=== PATIENT | male | born 2000 ===

== ENCOUNTER 2019-04-11 10:53 | Observation (INO) ==
[2019-04-11] MEDS ORDERED: LORazepam 2 MG/ML VIAL IV ONE (10:59)
[2019-04-11] MEDS ORDERED: 0.9 % SODIUM CHLORIDE 1,000 ML IV ONE ×4 (11:09→21:49)
[2019-04-11] MEDS ORDERED: ACETAMINOPHEN 1,000 MG/100 ML BOTTLE IV ONE (11:09)
[2019-04-11] MEDS ORDERED: OLANZapine 10 MG VIAL IM SCH (11:15)
[2019-04-11 11:34] LABS: Basophils # (Auto) 0 K/mcL (0.0-0.3); Basophils % (Auto) 0.3 % (0.0-2.0); Eosinophils # (Auto) 0 K/mcL (0.0-0.7); Eosinophils % (Auto) 0.8 % (0.0-7.0); Granulocytes % (Auto) 54.4 % (38.0-78.0); Hemoglobin 14.2 g/dL (13.5-16.5); Lymphocytes # (Auto) 1.8 K/mcL (1.5-4.8); Lymphocytes % (Auto) 34.3 % (15.5-49.0); Mean Cell Volume 93.7 fL (80.0-100.0); Mean Corpuscular HGB Conc 33.7 g/dL (31.0-36.0); Mean Platelet Volume 7.7 fL (7.4-10.4); Monocytes # (Auto) 0.5 K/mcL (0.1-0.9); Monocytes % (Auto) 10.2 % (1.0-12.0); Platelet Count 276 K/mcL (140-440); RBC 4.48 M/mcL (4.50-5.90); Red Cell Distribution Width 12.4 % (11.5-14.5); WBC 5.4 K/mcL (4.5-11.0)
--- NOTE | 2019-04-11 11:49 | Cat Scan Report ---
CLINICAL INFORMATION: Altered mental status COMPARISON: None. TECHNIQUE: Axial noncontrast-enhanced images through the brain. Sagittally and coronally reformatted images. FINDINGS: No acute intracranial hemorrhage. No subdural hematoma. There is no subarachnoid hemorrhage. No intra-axial hematoma. No focal intra-axial attenuation abnormality. No localized mass effect. No midline shift. Brain volume is normal. There is no hydrocephalus. Brainstem and cerebellum are negative No calvarial lesions. Temporal bones are negative. Visualized portions of the paranasal sinuses are negative. IMPRESSION: Negative noncontrast enhanced brain CT scan The exam was performed using radiation dose optimization techniques including, but not limited to, automated exposure control, adjustment of the mA and/or kV according to patient size and use of iterative reconstruction technique. Interpreted and Authenticated by: Vargas García 04/11/19
[2019-04-11 11:51] LABS: Alcohol, Blood < 10.0 mg/dL (<10); Alcohol,Blood < 0.010 gm/dl (<0.010)
[2019-04-11 11:52] LABS: POC Blood Urea Nitrogen 10 mg/dl (6-20); POC CO2 23 mmol/L (22-30); POC Chloride 102 mmol/L (96-108); POC Creatinine 0.9 mg/dl (0.7-1.2); POC Glucose, Random 91 mg/dL (70-105); POC Potassium 3.3 mmol/L (3.3-5.1); POC Sodium 138 mmol/L (133-145)
[2019-04-11 11:57] LABS: Creatine Kinase 300 IU/L (24-195)
[2019-04-11 12:07] LABS: ALT/SGPT 13 U/l (0-40); AST/SGOT 23 U/l (0-37); Albumin 4.8 gm/dL (3.2-5.2); Alkaline Phosphatase 69 U/L (39-117); Bilirubin,Total 0.7 mg/dL (0.0-1.0); Blood Urea Nitrogen 11 mg/dl (6-20); Calcium 8.8 mg/dl (8.6-10.4); Carbon Dioxide 17 mmol/L (22-30); Chloride 98 mmol/L (96-108); Globulin 2.4 gm/dL (2.2-3.7); Glomerular Filtration Rate 95; Glucose 176 mg/dL (70-105)
[2019-04-11 12:08] LABS: Acetaminophen < 5.0 ug/mL; Salicylate < 0.3 mg/dL
[2019-04-11 12:26] LABS: Amphetamine Screen,Urine SUSPECT POSITIVE (NONDETECTED); Barbiturate Screen,Urine NONE DETECTED (NONDETECTED); Benzodiazepines Screen,Urine NONE DETECTED (NONDETECTED); Cannabinoid Screen,Urine SUSPECT POSITIVE (NONDETECTED); Cocaine Screen,Urine NONE DETECTED (NONDETECTED); Opiate Screen,Urine NONE DETECTED (NONDETECTED); Oxycodone, Urine Screen NONE DETECTED (NONDETECTED); Phencyclidine Screen,Urine NONE DETECTED (NONDETECTED)
[2019-04-11 12:27] LABS: Appearance,Urine CLEAR; Bacteria,Urine 0 /hpf (0); Bilirubin,Urine NEG (NEG); Color,Urine AMBER; Culture Indicated,Urine NO; Glucose,Urine (UA) NEGATIVE (NEG); Ketones,Urine 5/TR mg/dL (NEG); Leukocyte Esterase,Urine NEG /uL (NEG); Mucus,Urine MANY /hpf (0); Nitrate,Urine NEG (NEG); Protein,Urine 30 mg/dL (NEG); Sperm,Urine PRESENT /hpf (ABSENT); Urine Blood NEG mg/dL (<0.03); Urine Hyaline Cast 9 /lpf (0-2); Urine RBC 2 /hpf (0-1); Urine Squamous Epithelial Cell 0 /hpf (0-4); Urine WBC 1 /hpf (0-4)
[2019-04-11] MEDS ORDERED: LACTATED RINGERS 1,000 ML IV ONE (13:19)
--- NOTE | 2019-04-11 13:51 | Emergency Department Note ---
Altered Mental Status HPI - General Chief Complaint: Altered Mental Status Stated Complaint: meth use, delerium, Time Seen by Provider: 04/11/19 11:08 Source: EMS Mode of arrival: EMS Limitations: no limitations - History of Present Illness HPI Narrative: 19-year-old male presents with altered LOC. Was brought in by medics and multiple police officers. He apparently told them that he had used some methamphetamine and marijuana and did have a small amount left on him. Told him that he had just used a punch. He denied any other drug use or alcohol use. Apparently multiple people had called 911 after he was acting erratically, having convulsions and rolling around in the middle the street. He was flailing everywhere and so [id number] that medics had to give him 400 of ketamine in the field to even be able to care for him. They state prior to this he would answer a couple of questions but was obviously confused, combative, and flailing all over. He did tell them that he recently had a right clavicle fracture but denied any other health problems. When he arrives he is unable to answer any questions, he is sleeping and has a little bit of response to painful stimuli but otherwise is non-responsive. He is breathing and able to control his airway. He is covered in dirt and very unkept and odorous. MD complaint: altered mental status, decreased responsiveness - Related Data Home Medications Medication Instructions Recorded Confirmed No Known Home Meds 04/11/19 04/11/19 Allergies Allergy/AdvReac Type Severity Reaction Status Date / Time Unable to Assess Allergy Verified 04/11/19 13:31 Review of Systems Limitations: ROS unobtainable due to patients medical condition Past Medical History - Past Medical History Medical history: Reports: no medical history Psychiatric history: Denies: anxiety, depression, bipolar, PTSD, schizophrenia, previous psychiatric hospitalization Surgical history ED: Reports: no surgical history - Social History smoking status: Unknown if ever smoked Alcohol use: Reports: Unknown Drug use: Reports: marijuana, methamphetamine, IVDU Physical Exam Limitations: no limitations General appearance: other (Only slightly responsive to painful stimuli. Right pupil is sluggish compared to the left. He does have some ecchymosis below the left eye that appears old. He is not alert to person, place, or time and is completely unable to answer questions or follow commands of any kind.) Head: atraumatic, normocephalic, normal inspection Eye: Present: other (Some mild ecchymosis that is in healing stages to the left eye). Absent: PERRL (Right pupil is sluggish, 3 mm bilaterally on arrival), conjunctival injection, periorbital swelling, periorbital tenderness ENT: Present: mucous membranes moist, TM's normal bilaterally, normal external ear exam Neck: Present: normal inspection, trachea midline Chest: Present: symmetric chest wall rise, tenderness (Does seem to have a little bit of response to painful palpation to the right clavicle area with some mild ecchymosis that is yellow and healing present.) Respiratory: Present: normal lung sounds bilaterally. Absent: respiratory distress, rales/crackles, accessory muscle use Cardiovascular: Present: tachycardia (Tachycardic in the 110s on arrival) Abdominal: Present: soft, normal bowel sounds. Absent: distention, tenderness, guarding Extremities: Present: normal inspection Neurological: Absent: alert, oriented X3 Coma Scale Eye Opening: To Pain Coma Scale Motor Response: Withdraws to Pain Coma Scale Verbal Response: Inappropriate Coma Scale Total: 9 Psychiatric: Present: normal affect, normal mood Skin: Present: warm, dry, intact, normal color Course Course Narrative: At 1400 I did speak with the hospitalist, Dr. Jones who agrees to accept this patient and will be down to see him. Patient continues to be sedated for the most part. He does wake up and yell at times but does not make comprehensible sounds. Does not follow commands. Will not answer questions. Most of the time he is calm and sleeping Vital Signs Temperature 100.0 F H 04/11/19 11:15 Temperature 96.3 F L 04/11/19 19:16 Pulse Rate 78 04/11/19 19:33 Respiratory Rate 14 04/11/19 19:33 Blood Pressure 118/76 04/11/19 19:16 Pulse Oximetry (%) 97 04/11/19 19:33 Altered Mental Status - Lab Data Lab results reviewed: Yes I reviewed the patient's lab results. Result diagrams: 04/11/19 11:10 04/11/19 11:10 Lab Results 04/11/19 04/11/19 04/11/19 Range/Units 11:10 11:10 11:10 WBC 5.4 (4.5-11.0) K/mcL RBC 4.48 L (4.50-5.90) M/mcL Hgb 14.2 (13.5-16.5) g/dL Hct 42.0 (41.0-55.0) % POC Hct (41.0-55.0) % MCV 93.7 (80.0-100.0) fL MCH 31.6 (26.0-34.0) pg MCHC 33.7 (31.0-36.0) g/dL RDW 12.4 (11.5-14.5) % Plt Count 276 (140-440) K/mcL MPV 7.7 (7.4-10.4) fL Gran % 54.4 (38.0-78.0) % Lymph % (Auto) 34.3 (15.5-49.0) % [place] % (Auto) 10.2 (1.0-12.0) % Eos % (Auto) 0.8 (0.0-7.0) % Baso % (Auto) 0.3 (0.0-2.0) % Gran # 2.9 (1.8-8.0) K/mcL Lymph # (Auto) 1.8 (1.5-4.8) K/mcL [place] # (Auto) 0.5 (0.1-0.9) K/mcL Eos # (Auto) 0 (0.0-0.7) K/mcL Baso # (Auto) 0 (0.0-0.3) K/mcL VBG Lactic Acid (0.5-2.0) mmol/L POC Sodium (133-145) mmol/L Sodium 137 (133-145) mmol/L POC Potassium (3.3-5.1) mmol/L Potassium 3.4 (3.3-5.1) mmol/L POC Chloride (96-108) mmol/L Chloride 98 (96-108) mmol/L Carbon Dioxide 17 L (22-30) mmol/L POC Total CO2 (22-30) mmol/L Anion Gap 22.0 H (8-16) POC BUN (6-20) mg/dl BUN 11 (6-20) mg/dl Creatinine 1.1 (0.7-1.2) mg/dl POC Creatinine (0.7-1.2) mg/dl GFR Calculation 95 Glucose 176 H (70-105) mg/dL POC Glucose (70-105) mg/dL Calcium 8.8 (8.6-10.4) mg/dl POC WB Ioniz Calcium (1.16-1.32) mmol/L Total Bilirubin 0.7 (0.0-1.0) mg/dL AST 23 (0-37) U/l ALT 13 (0-40) U/l Alkaline Phosphatase 69 (39-117) U/L Total Creatine Kinase (24-195) IU/L C-Reactive Protein (0.0-0.8) mg/dl Total Protein 7.2 (5.9-8.4) gm/dL Albumin 4.8 (3.2-5.2) gm/dL Globulin 2.4 (2.2-3.7) gm/dL Albumin/Globulin Ratio 2.0 (1.0-2.3) Urine Color Urine Appearance Urine pH (5.0-9.0) Ur Specific Leonard (1.000-1.035) Urine Protein (NEG) mg/dL Urine Glucose (UA) (NEG) mg/dL Urine Ketones (NEG) mg/dL Urine Occult Blood (<0.03) mg/dL Urine Nitrate (NEG) Urine Bilirubin (NEG) mg/dL Urine Urobilinogen (NEG) mg/dL Ur Leukocyte Esterase (NEG) /uL Urine RBC (0-1) /hpf Urine WBC (0-4) /hpf Ur Squamous Epith Cells (0-4) /hpf Urine Bacteria (0) /hpf Hyaline Casts (0-2) /lpf Urine Mucus (0) /hpf Urine Sperm (ABSENT) /hpf Ur Culture Indicated? Salicylates < 0.3 mg/dL Urine Opiates Screen (NONDETECTED) Ur Opiates Confirm Ur Oxycodone Screen (NONDETECTED) Urine Methadone Screen (NONDETECTED) Ur Methadone Confirm Acetaminophen < 5.0 ug/mL Ur Barbiturates Screen (NONDETECTED) Ur Barbiturate Confirm Ur Phencyclidine Scrn (NONDETECTED) Urine PCP Confirm Ur Amphetamines Screen (NONDETECTED) U Amphetamines Confirm U Benzodiazepines Scrn (NONDETECTED) U Benzodiazepine Confm Urine Cocaine Screen (NONDETECTED) Urine Cocaine Confirm U Cannabinoids Confirm U Marijuana (THC) Screen (NONDETECTED) Ethyl Alcohol (<0.010) gm/dl 12/11/19 12/11/19 12/11/19 Range/Units 11:10 11:15 11:15 WBC (4.5-11.0) K/mcL RBC (4.50-5.90) M/mcL Hgb (13.5-16.5) g/dL Hct (41.0-55.0) % POC Hct (41.0-55.0) % MCV (80.0-100.0) fL MCH (26.0-34.0) pg MCHC (31.0-36.0) g/dL RDW (11.5-14.5) % Plt Count (140-440) K/mcL MPV (7.4-10.4) fL Gran % (38.0-78.0) % Lymph % (Auto) (15.5-49.0) % [place] % (Auto) (1.0-12.0) % Eos % (Auto) (0.0-7.0) % Baso % (Auto) (0.0-2.0) % Gran # (1.8-8.0) K/mcL Lymph # (Auto) (1.5-4.8) K/mcL [place] # (Auto) (0.1-0.9) K/mcL Eos # (Auto) (0.0-0.7) K/mcL Baso # (Auto) (0.0-0.3) K/mcL VBG Lactic Acid 9.4 H* (0.5-2.0) mmol/L POC Sodium (133-145) mmol/L Sodium (133-145) mmol/L POC Potassium (3.3-5.1) mmol/L Potassium (3.3-5.1) mmol/L POC Chloride (96-108) mmol/L Chloride (96-108) mmol/L Carbon Dioxide (22-30) mmol/L POC Total CO2 (22-30) mmol/L Anion Gap (8-16) POC BUN (6-20) mg/dl BUN (6-20) mg/dl Creatinine (0.7-1.2) mg/dl POC Creatinine (0.7-1.2) mg/dl GFR Calculation Glucose (70-105) mg/dL POC Glucose (70-105) mg/dL Calcium (8.6-10.4) mg/dl POC WB Ioniz Calcium (1.16-1.32) mmol/L Total Bilirubin (0.0-1.0) mg/dL AST (0-37) U/l ALT (0-40) U/l Alkaline Phosphatase (39-117) U/L Total Creatine Kinase (24-195) IU/L C-Reactive Protein < 0.3 (0.0-0.8) mg/dl Total Protein (5.9-8.4) gm/dL Albumin (3.2-5.2) gm/dL Globulin (2.2-3.7) gm/dL Albumin/Globulin Ratio (1.0-2.3) Urine Color Urine Appearance Urine pH (5.0-9.0) Ur Specific Leonard (1.000-1.035) Urine Protein (NEG) mg/dL Urine Glucose (UA) (NEG) mg/dL Urine Ketones (NEG) mg/dL Urine Occult Blood (<0.03) mg/dL Urine Nitrate (NEG) Urine Bilirubin (NEG) mg/dL Urine Urobilinogen (NEG) mg/dL Ur Leukocyte Esterase (NEG) /uL Urine RBC (0-1) /hpf Urine WBC (0-4) /hpf Ur Squamous Epith Cells (0-4) /hpf Urine Bacteria (0) /hpf Hyaline Casts (0-2) /lpf Urine Mucus (0) /hpf Urine Sperm (ABSENT) /hpf Ur Culture Indicated? Salicylates mg/dL Urine Opiates Screen (NONDETECTED) Ur Opiates Confirm Ur Oxycodone Screen (NONDETECTED) Urine Methadone Screen (NONDETECTED) Ur Methadone Confirm Acetaminophen ug/mL Ur Barbiturates Screen (NONDETECTED) Ur Barbiturate Confirm Ur Phencyclidine Scrn (NONDETECTED) Urine PCP Confirm Ur Amphetamines Screen (NONDETECTED) U Amphetamines Confirm U Benzodiazepines Scrn (NONDETECTED) U Benzodiazepine Confm Urine Cocaine Screen (NONDETECTED) Urine Cocaine Confirm U Cannabinoids Confirm U Marijuana (THC) Screen (NONDETECTED) Ethyl Alcohol < 0.010 (<0.010) gm/dl 04/11/19 04/11/19 04/11/19 Range/Units 11:15 11:29 11:34 WBC (4.5-11.0) K/mcL RBC (4.50-5.90) M/mcL Hgb (13.5-16.5) g/dL Hct (41.0-55.0) % POC Hct 35.0 L (41.0-55.0) % MCV (80.0-100.0) fL MCH (26.0-34.0) pg MCHC (31.0-36.0) g/dL RDW (11.5-14.5) % Plt Count (140-440) K/mcL MPV (7.4-10.4) fL Gran % (38.0-78.0) % Lymph % (Auto) (15.5-49.0) % [place] % (Auto) (1.0-12.0) % Eos % (Auto) (0.0-7.0) % Baso % (Auto) (0.0-2.0) % Gran # (1.8-8.0) K/mcL Lymph # (Auto) (1.5-4.8) K/mcL [place] # (Auto) (0.1-0.9) K/mcL Eos # (Auto) (0.0-0.7) K/mcL Baso # (Auto) (0.0-0.3) K/mcL VBG Lactic Acid (0.5-2.0) mmol/L POC Sodium 138 (133-145) mmol/L Sodium (133-145) mmol/L POC Potassium 3.3 (3.3-5.1) mmol/L Potassium (3.3-5.1) mmol/L POC Chloride 102 (96-108) mmol/L Chloride (96-108) mmol/L Carbon Dioxide (22-30) mmol/L POC Total CO2 23 (22-30) mmol/L Anion Gap (8-16) POC BUN 10 (6-20) mg/dl BUN (6-20) mg/dl Creatinine (0.7-1.2) mg/dl POC Creatinine 0.9 (0.7-1.2) mg/dl GFR Calculation Glucose (70-105) mg/dL POC Glucose 91 (70-105) mg/dL Calcium (8.6-10.4) mg/dl POC WB Ioniz Calcium 1.10 L (1.16-1.32) mmol/L Total Bilirubin (0.0-1.0) mg/dL AST (0-37) U/l ALT (0-40) U/l Alkaline Phosphatase (39-117) U/L Total Creatine Kinase 300 H (24-195) IU/L C-Reactive Protein (0.0-0.8) mg/dl Total Protein (5.9-8.4) gm/dL Albumin (3.2-5.2) gm/dL Globulin (2.2-3.7) gm/dL Albumin/Globulin Ratio (1.0-2.3) Urine Color Nicole Urine Appearance Clear Urine pH 5.0 (5.0-9.0) Ur Specific Leonard 1.030 (1.000-1.035) Urine Protein 30 A (NEG) mg/dL Urine Glucose (UA) Negative (NEG) mg/dL Urine Ketones 5/tr A (NEG) mg/dL Urine Occult Blood Neg (<0.03) mg/dL Urine Nitrate Neg (NEG) Urine Bilirubin Neg (NEG) mg/dL Urine Urobilinogen 4.0 A (NEG) mg/dL Ur Leukocyte Esterase Neg (NEG) /uL Urine RBC 2 H (0-1) /hpf Urine WBC 1 (0-4) /hpf Ur Squamous Epith Cells 0 (0-4) /hpf Urine Bacteria 0 (0) /hpf Hyaline Casts 9 H (0-2) /lpf Urine Mucus Many A (0) /hpf Urine Sperm Present A (ABSENT) /hpf Ur Culture Indicated? No Salicylates mg/dL Urine Opiates Screen None detected (NONDETECTED) Ur Opiates Confirm Not Reportable Ur Oxycodone Screen None detected (NONDETECTED) Urine Methadone Screen None detected (NONDETECTED) Ur Methadone Confirm Not Reportable Acetaminophen ug/mL Ur Barbiturates Screen None detected (NONDETECTED) Ur Barbiturate Confirm Not Reportable Ur Phencyclidine Scrn None detected (NONDETECTED) Urine PCP Confirm Not Reportable Ur Amphetamines Screen Suspect positive A (NONDETECTED) U Amphetamines Confirm Not Reportable U Benzodiazepines Scrn None detected (NONDETECTED) U Benzodiazepine Confm Not Reportable Urine Cocaine Screen None detected (NONDETECTED) Urine Cocaine Confirm Not Reportable U Cannabinoids Confirm Not Reportable U Marijuana (THC) Screen Suspect positive A (NONDETECTED) Ethyl Alcohol (<0.010) gm/dl - Radiology Data Radiology results reviewed: Yes I reviewed the patient's radiology results. Disposition Pt seen by [facility] only: Yes Clinical Impression: Altered mental status, Methamphetamine abuse Disposition: Xfer As Outpt/Obs ([facility]) Condition: Fair
--- NOTE | 2019-04-11 14:29 | Internal Med History&Physical ---
Medical - H&P: HPI Patient information: Note initiated : 04/11/19 at 2:27 pm Service Date, if different from initiated Date: [] Patient: Adonay Velasquez a 19 y/o M admitted on for meth use, delerium,. Chief Complaint: [] Chief complaint: Meth overdose found down History of present illness: Mr. Velasquez is a 19 year old M who was brought in by law enforcement under influence of methamphetamine with significant agitation/psychotic episode. Patient was sedated on ketamine by EMS along with olanzapine and Ativan in the ER. Initial work-up was essentially unremarkable except for symptoms sign c onsistent with methamphetamine intoxication. Poison control was consulted and recommended minimum of 8-hour monitoring. Subsequently hospitalist service was consulted. No history could be obtained from the patient and he is sedated and unresponsive. However his sats stable on room air with minimal tachycardia. Extensive abrasions over face. No visible additional injuries. No family members present. History is obtained from review of medical records and ER physician. Greenish periurethral discharge noted, Jorge's catheter in place. Review of systems Attempted but could not performed Medical - H&P: PMH Medical history: Recent clavicle fracture Substance abuse Smoking status: Smoker, status unknown Medical - H&P: Meds Home Medications Medication Instructions Recorded Confirmed Type No Known Home Meds 04/11/19 04/11/19 History Allergies Allergy/AdvReac Type Severity Reaction Status Date / Time Unable to Assess Allergy Verified 04/11/19 13:31 Medical - H&P: Exam - Constitutional Vitals: Temp Pulse Resp BP Pulse Ox 95.7 F L 51 L 17 143/91 99 04/11/19 13:31 04/11/19 13:31 04/11/19 13:31 04/11/19 13:31 04/11/19 13:31 Exam: Sedated and unresponsive Head normocephalic Facial bruising/abrasion paranasal area/cheeks Oral cavity dry, no bleeding Neck no lymphadenopathy S1-S2 tachycardia Diminished breath sounds bases Abdomen soft nontender Lower extremity no sinus clubbing or joint swelling Periurethral drainage discharge/Jorge's catheter No joint swelling erythema Psych currently under sedation Neuro could not be examined Medical - H&P: Reslt - Labs CBC & Chem 7: 04/11/19 11:10 04/12/19 03:45 Labs: Short CBC 04/11/19 Range/Units 11:10 WBC 5.4 (4.5-11.0) K/mcL Hgb 14.2 (13.5-16.5) g/dL Hct 42.0 (41.0-55.0) % Plt Count 276 (140-440) K/mcL BMP 04/11/19 11:10 Sodium 137 Potassium 3.4 Chloride 98 Carbon Dioxide 17 L BUN 11 Creatinine 1.1 Glucose 176 H Calcium 8.8 Cardiac Enzymes 04/11/19 Range/Units 11:15 Total Creatine Kinase 300 H (24-195) IU/L Liver Function 04/11/19 Range/Units 11:10 Total Bilirubin 0.7 (0.0-1.0) mg/dL AST 23 (0-37) U/l ALT 13 (0-40) U/l Alkaline Phosphatase 69 (39-117) U/L Albumin 4.8 (3.2-5.2) gm/dL Urine 04/11/19 Range/Units 11:34 Urine Color Nicole Urine Appearance Clear Urine pH 5.0 (5.0-9.0) Ur Specific Ashley 1.030 (1.000-1.035) Urine Protein 30 A (NEG) mg/dL Urine Glucose (UA) Negative (NEG) mg/dL Medical - H&P: A/P (1) Methamphetamine intoxication Current visit: Yes Status: Acute * Methamphetamine intoxication with acute psychosis-continue crystalloid/sedated/close hemodynamic monitoring. Monitor for rhabdomyolysis. As needed benzodiazepine to control psychomotor agitation/hypertension. * Methamphetamine abuse-once patient clinically improves initiate counseling/outpatient recovery/rehab referrals * Acute kidney injury secondary to volume depletion/suspected early rhabdomy olysis. Aggressive crystalloids followed by diuresis * Full code Plan * Observation admit * Telemetry monitoring * Benzodiazepine as indicated aggressive crystalloids and supportive management * STD screen * Monitor renal function
[2019-04-11] MEDS ORDERED: ONDANSETRON 4 MG ODT TABLET SL PRN (15:34)
[2019-04-11] MEDS ORDERED: POTASSIUM CHLORIDE 20 MEQ PACKET PO PRN (15:34)
[2019-04-11] MEDS ORDERED: POLYETHYLENE GLYCOL 3350 17 GM PACKET PO PRN (15:34)
[2019-04-11] MEDS ORDERED: BISACODYL 10 MG SUPP.RECT PR PRN (15:34)
[2019-04-11] MEDS ORDERED: MAGNESIUM SULFATE 2 GM/50 ML BAG IV PRN (15:34)
[2019-04-11] MEDS ORDERED: ACETAMINOPHEN 650 MG/65 ML BOTTLE IV PRN (15:34)
[2019-04-11] MEDS ORDERED: 0.9 % SODIUM CHLORIDE 1,000 ML IV SCH (15:34)
[2019-04-11] MEDS ORDERED: ONDANSETRON 4 MG/2 ML VIAL IV PRN (15:34)
[2019-04-11] MEDS: 0.9 % SODIUM CHLORIDE 1,000 ML IV SCH ×3 (16:17→23:45)
[2019-04-11] MEDS: LORazepam 2 MG/ML VIAL IV PRN ×2 (16:22→21:55)
[2019-04-11] MEDS ORDERED: SENNOSIDES/DOCUSATE SODIUM 1 TAB TABLET PO SCH (21:00)
[2019-04-11] MEDS: CYANOCOBALAMIN (VITAMIN B-12) 500 MCG TABLET PO SCH (21:09)
[2019-04-11] MEDS: DOCUSATE SODIUM 100 MG CAPSULE PO SCH (21:09)
[2019-04-11] MEDS ORDERED: FUROSEMIDE 20 MG/2 ML VIAL IV ONE (21:49)
[2019-04-11] MEDS: 0.9 % SODIUM CHLORIDE 10 ML SYRINGE IV SCH (22:04)
[2019-04-12] MEDS: 0.9 % SODIUM CHLORIDE 1,000 ML IV SCH ×3 (03:43→12:09)
[2019-04-12] MEDS: LORazepam 2 MG/ML VIAL IV PRN (06:06)
[2019-04-12 07:08] LABS: Bilirubin,Direct < 0.2 mg/dL (0.0-0.3); Chloride 108 mmol/L (96-108)
[2019-04-12 07:11] LABS: ALT/SGPT 8 U/l (0-40); AST/SGOT 28 U/l (0-37); Albumin 3.3 gm/dL (3.2-5.2); Albumin/Globulin Ratio 1.7 (1.0-2.3); Alkaline Phosphatase 44 U/L (39-117); Bilirubin,Total 0.6 mg/dL (0.0-1.0); Blood Urea Nitrogen 4 mg/dl (6-20); Calcium 8.1 mg/dl (8.6-10.4); Carbon Dioxide 18 mmol/L (22-30); Glomerular Filtration Rate 128; Glucose 58 mg/dL (70-105); Lactate Dehydrogenase 398 U/L (94-250); Phosphorous 2.7 mg/dL (2.7-4.5); Triglycerides 72 mg/dl (<150); Uric Acid 6.5 mg/dL (2.5-8.0)
[2019-04-12] MEDS: 0.9 % SODIUM CHLORIDE 10 ML SYRINGE IV SCH ×2 (07:17→14:58)
[2019-04-12] MEDS ORDERED: LORazepam 2 MG/ML VIAL IV PRN (07:19)
[2019-04-12] MEDS ORDERED: MULTIVIT,THER IRON,CA,FA & MIN 1 TABLET PO SCH (09:00)
[2019-04-12] MEDS ORDERED: THIAMINE 100 MG TABLET PO SCH (09:00)
[2019-04-12] MEDS ORDERED: FOLIC ACID 1 MG TABLET PO SCH (09:00)
[2019-04-12] MEDS: CYANOCOBALAMIN (VITAMIN B-12) 500 MCG TABLET PO SCH (09:50)
[2019-04-12] MEDS: DOCUSATE SODIUM 100 MG CAPSULE PO SCH (09:50)
--- NOTE | 2019-04-12 16:43 | Discharge Summary ---
Medical - DS: Prov Patient information: Note initiated : 04/12/19 at 4:29 pm Service Date, if different from initiated Date: [] Patient: Adonay Velasquez 19 y/o M admitted on 04/11/19 for meth use, delerium,. Chief Complaint: [] Date of admission: 04/11/19 15:21 Discharge date: 04/12/19 Primary care physician: Oskar Quintana Consults: 04/11/19 Consult to Physician [CONS] Stat Comment: Consulting Provider: Geovanny Wynn Reason For Exam: Physician to Consult Medical - DS: Meds - Discharge Medications Active and Home Medications: Home Medications No Known Home Meds 04/11/19 [History Confirmed 04/11/19 Last Taken Unknown] Medical - DS: Hosp Hospital Course: Discharge Diagnosis * Methamphetamine intoxication with acute psychosis-resolved with crystalloids and supportive management. * Substance abuse-councelled, [facility] consult, counseling/outpatient rehab referrals * Acute kidney injury secondary to volume depletion/suspected early rhabdomyolysis. resolved. Brief hospital course Mr. Velasquez is a 19 year old M who was brought in by law enforcement under influence of methamphetamine with significant agitation/psychotic episode. Patient was sedated on ketamine by EMS along with olanzapine and Ativan in the ER. Initial work-up was essentially unremarkable except for symptoms sign consistent with methamphetamine intoxication. Poison control was consulted and recommended minimum of 8-hour monitoring. Subsequently hospitalist service was consulted. No history could be obtained from the patient and he is sedated and unresponsive. However his sats stable on room air with minimal tachycardia. Extensive abrasions over face. No visible additional injuries. No family members present. History is obtained from review of medical records and ER physician. Greenish periurethral discharge noted, Jorge's catheter in place. 04/12- Doing well, tolerating diet, stable hemodynamics. Discharging home with advise as above Discharge diagnosis: . - Time Spent with Patient Total time spent providing and/or coordinating discharge services: Greater than 30 minutes Medical - DS: Exam - Constitutional Vitals: Vital Signs Temp Pulse Resp BP Pulse Ox 04/12/19 15:01 59 L 16 109/59 98 04/12/19 14:01 70 15 103/62 97 04/12/19 13:01 59 L 15 102/64 100 04/12/19 12:01 97.4 F 56 L 15 111/68 100 04/12/19 11:03 54 L 14 108/66 100 04/12/19 10:01 59 L 14 106/66 99 04/12/19 09:01 58 L 14 119/82 100 04/12/19 08:01 97.7 F 51 L 24 H 106/66 99 04/12/19 07:01 58 L 15 105/62 100 04/12/19 06:36 96.2 F L 68 15 99 04/12/19 06:01 96.2 F L 54 L 14 119/71 99 04/12/19 05:01 96.0 F L 46 L 14 110/71 100 04/12/19 04:18 96.3 F L 60 14 99 04/12/19 04:01 96.3 F L 51 L 14 113/60 100 04/12/19 03:04 96.2 F L 63 14 97 04/12/19 03:01 96.2 F L 66 14 111/70 98 04/12/19 02:57 97.1 F 62 14 98 04/12/19 02:01 48 L 13 109/57 99 04/12/19 01:22 96.5 F L 16 100 04/12/19 01:01 96.6 F L 15 114/90 04/12/19 00:23 96.6 F L 69 14 97 04/12/19 00:01 96.5 F L 66 15 110/67 99 04/11/19 23:06 97.0 F 58 L 13 100 04/11/19 23:01 97.0 F 54 L 12 130/96 100 04/11/19 22:46 96.8 F L 56 L 12 124/80 100 04/11/19 22:31 96.6 F L 46 L 16 103/91 100 04/11/19 22:16 96.7 F L 58 L 13 120/76 100 04/11/19 22:01 96.8 F L 83 21 140/90 100 04/11/19 22:00 96.8 F L 86 21 100 04/11/19 21:46 96.7 F L 69 15 121/75 100 04/11/19 21:31 96.7 F L 73 13 121/72 99 04/11/19 21:16 96.6 F L 55 L 14 120/71 100 04/11/19 21:01 96.6 F L 74 14 119/77 100 04/11/19 20:46 96.6 F L 72 13 116/69 98 04/11/19 20:31 96.5 F L 74 13 115/71 99 04/11/19 20:18 96.5 F L 48 L 13 119/72 99 04/11/19 20:01 96.5 F L 59 L 11 L 128/74 100 04/11/19 20:00 99 04/11/19 19:46 96.4 F L 81 12 128/81 100 04/11/19 19:33 78 14 97 04/11/19 19:31 96.3 F L 74 14 122/74 99 04/11/19 19:16 96.3 F L 74 13 118/76 100 04/11/19 19:01 96.3 F L 53 L 15 122/75 100 04/11/19 18:46 96.4 F L 68 14 113/64 99 04/11/19 18:31 96.4 F L 75 13 126/74 99 04/11/19 18:27 96.4 F L 59 L 13 126/74 100 04/11/19 18:23 96.4 F L 62 12 100 04/11/19 18:16 96.3 F L 56 L 12 127/65 100 04/11/19 18:14 96.3 F L 49 L 13 123/70 100 04/11/19 17:46 96.2 F L 114 H 20 155/80 97 04/11/19 17:31 96.2 F L 85 14 115/68 98 04/11/19 17:16 96.3 F L 78 12 120/72 99 04/11/19 17:01 96.5 F L 90 14 118/64 98 04/11/19 16:46 96.6 F L 84 14 117/64 98 04/11/19 16:31 96.7 F L 81 14 122/72 99 Intake and Output 04/12/19 04/12/19 04/12/19 05:59 13:59 21:59 Intake Total 3400 2120 Output Total 3940 2110 Balance -540 10 Intake: IV 3400 2000 Sodium Chloride 0.9% 1,000 ml @ 3400 2000 250 mls/hr IV .Q4H [facility] Rx#: [id number] Oral 120 Output: Urine Catheter Amount [id number] Other: Urine Appearance Uretheral (Jorge) Clear Clear Urine Color Uretheral (Jorge) Pale Pale Medical - DS: Data Labs on day of discharge: Labs from last 24 hours 04/12/19 04/11/19 03:45 20:09 VBG Lactic Acid 0.5 Sodium 140 Potassium 4.1 Chloride 108 Carbon Dioxide 18 L Anion Gap 14.0 BUN 4 L Creatinine 0.8 GFR Calculation 128 Glucose 58 L Uric Acid 6.5 Calcium 8.1 L Phosphorus 2.7 Magnesium 1.9 Total Bilirubin 0.6 Direct Bilirubin < 0.2 GGT 13 AST 28 ALT 8 Alkaline Phosphatase 44 Lactate Dehydrogenase 398 H Total Protein 5.3 L Albumin 3.3 Globulin 2.0 L Albumin/Globulin Ratio 1.7 Triglycerides 72 Medical - DS: A/P - Patient/Caregiver Discharge Instructions Activity: increase activity as tolerated Diet: Regular Diet - Problem Maintenance (1) Methamphetamine intoxication Status: Acute - Follow up Plan Follow up with: Ann-Marie Acuña MD [Physician] - Oskar Quintana MD [Primary Care Provider] - Disposition: Home, Self-Care Care Plan Goals: This discharge packet is provided to you to help keep you informed about your care. We want to ensure you get everything you need when you go home. You will also be receiving a call from us in a few days to follow up with you and see how you are doing since your discharge. This gives us a chance to listen to any concerns you maybe experiencing since you were discharged or any additional needs you may have, as well as providing us feedback on your care experience. We strive to always provide excellent care and thank you for your feedback and for choosing [facility]. Prognosis: Fair Rehab Potential: Fair I certify that the patient requires SNF services: No Overall status at discharge: patient is progressing back to baseline
[2019-04-18 12:32] LABS: Cannabinoid Confirmation POSITIVE (N)
== END 2019-04-12 17:50 | disposition home or self-care (01) ==
LOC: ICU 10:53 → ED 10:53 → ICU 15:21
PROVIDERS: ADMIT Internal Medicine; ATTEND Internal Medicine